=== PATIENT | male | born 1980 | race Caucasian/White ===

== ENCOUNTER 2021-03-27 13:09 | Emergency (ER) | payer OTHER ==
[~2021-03-27] VITALS: Ht 177.8 cm; Wt 65.8 kg
[2021-03-27 13:58] VITALS: BP 141/89
== END 2021-03-27 15:17 | disposition home or self-care (01) ==
LOC: ER 13:09
DX: B34.9 Viral infection, unspecified (principal); Z20.822 Contact with and (suspected) exposure to COVID-19; F12.90 Cannabis use, unspecified, uncomplicated; F17.210 Nicotine dependence, cigarettes, uncomplicated

== ENCOUNTER → 2021-03-31 | Emergency (ER) | payer BC | LOC: ER 18:12 | DX: Z01.84 Encounter for antibody response examination (principal); Z53.21 Procedure and treatment not carried out due to patient leaving prior to being seen by health care provider ==